=== PATIENT | female | born 1970 | race Two or more races ===

== ENCOUNTER 2021-03-22 01:04 | Inpatient (IN) | payer MEDICAID ==
[~2021-03-22] VITALS: Ht 162.6 cm; Wt 40.4 kg
[2021-03-22] VITALS (11 sets, daily range): BP systolic 110–148; BP diastolic 60–99
--- NOTE | 2021-03-22 01:23 | NUR ---
LAW IBRAHIM AT PT'S BEDSIDE
--- NOTE | 2021-03-22 01:24 | NUR ---
BIBRA 7 C/O PALPITATIONS. STATED IT HAS BEEN GOING ON FOR TWO DAYS BUT WORSTENED TODAY. PT BREATHING FAST BUT EVEN PLACED ON CREDIT COLLECTION ASSOCIATE RATE AT 135. PT ON NC 2LPM AT HOME SATTING 81% ON ASSESSMENT INCREASED TO 4LPM 96%. CHANGED INTO A GOWN AND PLACED ON MONITOR. EMT AT BEDSIDE FOR EKG AND MD AT BEDSIDE FOR EVALUATION.
--- NOTE | 2021-03-22 01:26 | NUR ---
VERTICAL CONTOUR BAND SAW OPERATOR AT PT'S BEDSIDE
[2021-03-22] MEDS ORDERED: IV NS 0.9% 1,000 ML IV ONE (01:30)
[2021-03-22] MEDS ORDERED: ASPIRIN 325 MG TABLET PO ONE (01:30)
[2021-03-22] MEDS ORDERED: ASPIRIN 325 MG TABLET ONE (01:33)
[2021-03-22 01:41] LABS: BASOPHILS % (AUTO) 0.6 % (0.0-2.0); EOSINOPHILS % (AUTO) 3.9 % (0.0-6.0); HEMATOCRIT 36 % (33-45); HEMOGLOBIN 11.9 g/dL (11.5-14.8); LYMPHOCYTES # (AUTO) 1.8 K/uL (0.8-4.8); LYMPHOCYTES % (AUTO) 25.2 % (20.0-44.0); MEAN CORPUSCULAR HGB CONC 33 g/dl (31.0-36.0); MEAN CORPUSCULAR VOLUME 87 fL (82-100); MONOCYTES # (AUTO) 0.7 K/uL (0.1-1.30); MONOCYTES % (AUTO) 8.9 % (2.0-12.0); NEUTROPHILS # (AUTO) 4.5 K/uL (1.8-8.9); NEUTROPHILS % (AUTO) 61.4 % (43.0-81.0); PLATELET COUNT (AUTO) 265 K/uL (150-450); RED BLOOD CELL COUNT(AUTO) 4.19 MIL/uL (4.0-5.2); WHITE BLOOD COUNT (AUTO) 7.3 K/uL (4.3-11.0)
[2021-03-22 01:51] LABS: MAGNESIUM 1.7 mg/dL (1.8-2.4)
[2021-03-22 01:54] LABS: CALCIUM, SERUM 8.3 mg/dL (8.5-10.1); CARBON DIOXIDE 37 mmol/L (21-32); CHLORIDE 99 mmol/L (98-107); CREATININE 0.7 mg/dL (0.6-1.3); GLUCOSE 141 mg/dL (74-106); POTASSIUM 3.7 mmol/L (3.5-5.1); SODIUM SERUM 139 mmol/L (136-145); UREA NITROGEN, BLOOD 9 mg/dL (7-18)
[2021-03-22 02:07] LABS: THYROID STIMULATING HORMONE 2.005 uIU/mL (0.358-3.74)
[2021-03-22] MEDS ORDERED: IV NS 0.9% 250 ML IV ONE (02:08)
[2021-03-22] MEDS ORDERED: IOHEXOL-350 100 ML VIAL IV ONE (02:08)
--- NOTE | 2021-03-22 02:12 | NUR ---
PT BEING TAKEN TO CT VIA OMER
--- NOTE | 2021-03-22 02:32 | NUR ---
PT RETURNED FROM CT
--- NOTE | 2021-03-22 03:47 | NUR ---
COVID SWAB COLLECTED AND SENT TO LAB
[2021-03-22] MEDS ORDERED: CEFEPIME 1 GM in IV D5W 50 ML IV ONE (04:00)
[2021-03-22] MEDS ORDERED: VANCOMYCIN 1 GM VIAL ONE (04:00)
[2021-03-22] MEDS ORDERED: CEFEPIME 1 GM VIAL ONE (04:00)
[2021-03-22] MEDS ORDERED: VANCOMYCIN 1 GM in IV D5W 250 ML IV ONE (04:00)
--- NOTE | 2021-03-22 04:43 | NUR ---
called [facility]. automotive exhaust emissions technician hospitalist paged
--- NOTE | 2021-03-22 04:48 | NUR ---
ER TALKING TO HOSPITALIST
[2021-03-22] MEDS ORDERED: MAGNESIUM HYDROXIDE 30 ML UDC PO PRN (05:30)
[2021-03-22] MEDS ORDERED: MAG HYDROX/AL HYDROX/SIMETH 30 ML UDC PO PRN (05:30)
[2021-03-22] MEDS ORDERED: ONDANSETRON HCL/PF 4 MG/2 ML VIAL IVP PRN (05:30)
[2021-03-22] MEDS ORDERED: Z GUARD REMEDY 4 OZ OINT TP PRN (05:30)
[2021-03-22] MEDS ORDERED: ZOLPIDEM TARTRATE 5 MG TABLET PO PRN (05:30)
--- NOTE | 2021-03-22 05:46 | NUR ---
COVID PCR SWB DONE AND SENT TO LAB
[2021-03-22 06:35] LABS: ABG OXYGEN SATURATION 97.1 % (92.0-98.5); ABG PCO2 83.8 mmHg (35.0-45.0); ABG PH 7.204 (7.350-7.450); ABG PO2 111.7 mmHg (75.0-100.0); AaDO2 18.4 mmHg; COHb 0.3 % (0.5-1.5); MetHb 0.2 % (0.0-1.5); O2Hb 96.6 % (94.0-97.0); SITE, ABG Right Radial; VENT MODE, BG Nasal Cannula
--- NOTE | 2021-03-22 06:57 | NUR ---
PER HOSPITALIST Andrew HARRISON, ORDER FOR BIPAP AND UPGRADE TO ICU.
--- NOTE | 2021-03-22 07:16 | NUR ---
RN INSURANCE AGENTS SUPERVISOR AWARE THAT PT IS UPGRADED TO ICU
[2021-03-22 07:28] LABS: CHOLESTEROL 180 mg/dL (<200); HDL CHOLESTEROL 82 mg/dL (40-60); LDL 83 mg/dL (0-99); TRIGLYCERIDES 60 mg/dL (30-150)
--- NOTE | 2021-03-22 07:30 | NUR ---
PATIENT IN BED, AWAKE, ON BIPAP, WITH SETTINGS OF IPAP/EPAP: 15/5, RATE 22, O2 AT 35%, TOLERATING WELL. ON GRAPHIC ARTIST, SINUS TACHY AT 118. WILL CONTINUE TO MONITOR, KEPT SAFE AND COMFORTABLE.
--- NOTE | 2021-03-22 08:00 | NUR ---
AR BEDSIDE FOR EVAL.
--- NOTE | 2021-03-22 08:55 | NUR ---
TIANA BOWMAN AT BEDSIDE
[2021-03-22] MEDS: ENOXAPARIN SODIUM 40 MG/0.4 ML DISP.SYRIN SQ SCH (09:00)
[2021-03-22] MEDS ORDERED: CITA40TA11 PO (09:14)
[2021-03-22] MEDS ORDERED: PRED1TAB PO (09:14)
[2021-03-22] MEDS ORDERED: POTA-58 PO (09:14)
[2021-03-22] MEDS ORDERED: LEVO25TA9 PO (09:14)
[2021-03-22] MEDS ORDERED: NORT25CA PO (09:14)
[2021-03-22] MEDS ORDERED: FLUT12AE15 INH (09:15)
[2021-03-22] MEDS ORDERED: RIFA300C4 PO (09:15)
[2021-03-22] MEDS ORDERED: CITA20TA16 PO (09:15)
[2021-03-22] MEDS ORDERED: SULF500T46 PO (09:15)
[2021-03-22] MEDS ORDERED: ACET250T9 PO (09:15)
[2021-03-22] MEDS ORDERED: TRAZ-182 PO (09:15)
[2021-03-22] MEDS ORDERED: PANT40TA49 PO (09:15)
[2021-03-22] MEDS ORDERED: METO25TA20 PO (09:15)
[2021-03-22] MEDS ORDERED: FLUTICASONE INH SCH (10:00)
[2021-03-22] MEDS ORDERED: SALMETEROL INH SCH (10:00)
[2021-03-22] MEDS ORDERED: [UNRECOGNIZED DRUG - OTHER] INH SCH (10:00)
[2021-03-22] MEDS ORDERED: ENOXAPARIN SODIUM 40 MG/0.4 ML DISP.SYRIN SQ ONE (10:12)
[2021-03-22] MEDS ORDERED: Magnesium 1GM/D5W 100ML PREMIX 100 ML IV SCH (10:30)
[2021-03-22] MEDS ORDERED: methylPREDNISolone SOD SUCC 40 MG/ML VIAL ONE (10:45)
[2021-03-22] MEDS ORDERED: Magnesium 1GM/D5W 100ML PREMIX 100 ML IV ONE (10:45)
[2021-03-22] MEDS: methylPREDNISolone SOD SUCC 40 MG/ML VIAL IV SCH ×2 (10:52→21:11)
--- NOTE | 2021-03-22 11:03 | NUR ---
SCAR DAUGHTER [phone] CALLED FOR UPDATE
[2021-03-22 11:21] LABS: ABG BASE EXCESS 1.3 mmol/L; ABG PCO2 64.6 mmHg (35.0-45.0); ABG PH 7.277 (7.350-7.450); ABG PO2 90.7 mmHg (75.0-100.0); AaDO2 61.9 mmHg; COHb 0.3 % (0.5-1.5); MetHb 0.2 % (0.0-1.5); O2Hb 95.5 % (94.0-97.0); SITE, ABG Right Radial; VENT MODE, BG NASAL CANNULA
--- NOTE | 2021-03-22 11:36 | NUR ---
PATIENT REQUESTED FOR TYLENOL FOR HEADACHE
[2021-03-22] MEDS ORDERED: ACETAMINOPHEN 325 MG TABLET ONE (11:38)
[2021-03-22] MEDS: ACETAMINOPHEN 325 MG TABLET PO PRN (11:47)
[2021-03-22] MEDS: IPRATROPIUM/ALBUTEROL INHALER IH SCH ×2 (12:00→18:00)
[2021-03-22] MEDS: CEFEPIME 2 GM in IV D5W 100 ML IV SCH ×2 (12:13→20:05)
[2021-03-22] MEDS: VANCOMYCIN 0.75 GM in IV D5W 250 ML IV SCH ×2 (13:05→21:13)
--- NOTE | 2021-03-22 13:19 | NUR ---
ICU BED 255
--- NOTE | 2021-03-22 13:54 | NUR ---
REPORT GIVEN TO ALPESH AUGUSTIN OF ICU
--- NOTE | 2021-03-22 15:21 | NUR ---
RN NOTES RECEIVED PATIENT FROM ER VIA GURDEANA, IMMEDIATELY NEEDED TO VOID - CLEAR YELLOW NORMAL NO ODOR USED BED JORDAN, ABLE TO HELP WITH MINIMAL ASSISTANCE, ABLE TO COMMUNICATE AND MAKES NEEDS KNOW, A & 0 X 3, [place] SPEAKING, UNDERSTANDS SOME MAORI, CAME FROM HOME LIVES WITH FAMILY, C/O CHEST PAIN, SOB NOTED, ON 1 LPM NC PER MD ORDERS TO GAUGE WHERE THE OXYGEN READING IS IN ONE HOUR AND THEN DETERMINE NEXT ORDER. BED WHEELS LOCKED , BED ARMS UP X2 FOR SAFETY, BED LOW TO FLOOR, CALL LIGHT IN REACH. TELE - MEDS ON FOR HR READINGS
[2021-03-22 16:11] LABS: ABG BASE EXCESS 5.4 mmol/L; ABG OXYGEN SATURATION 91.4 % (92.0-98.5); ABG PCO2 63.9 mmHg (35.0-45.0); ABG PH 7.333 (7.350-7.450); ABG PO2 62.1 mmHg (75.0-100.0); COHb 0.3 % (0.5-1.5); MetHb 0.3 % (0.0-1.5); O2Hb 90.9 % (94.0-97.0); SITE, ABG Right Radial; VENT MODE, BG NASAL CANNULA
[2021-03-22] MEDS: FLUTICASONE/VILANTEROL 1 EACH BLST.W.DEV IH SCH (18:56)
[2021-03-22] MEDS: RIFAMPIN 300 MG CAPSULE PO SCH (18:56)
--- NOTE | 2021-03-22 19:06 | NUR ---
RN Closing notes PATIENT TOLERATING NC AT 1 LPM PER MD ORDERS TO EVALUATE OXYGEN LEVELS RANGES FROM 92-96 % GIVEN A 25 FT NC TO MORE EASILY GO TO BATHROOM, GAIT IS WEAK NEEDS 1 PERSON ASSISTANCE, ABLE TO MAKE NEEDS KNOWN AND A & O X4, BED KEPT LOW TO FLOOR, WHEELS LOCKED, 2 SIDE BAR UP FOR SAFETY, FALL RISK IN PLACE, CALL LIGHT IN REACH AND EDUCATED TO ASK FOR HELP WHEN NEEDING TO TRANSFER TO BATHROOM OR OTHER, UNDERSTANDS SOME BASIC OCCITAN, ALL NEEDS MET IN A TIMELY MANNER AND REPOSITIONED FOR COMFORT AND SAFETY OF SKIN.
--- NOTE | 2021-03-22 19:45 | NUR ---
LONG TERM CARE ADMINISTRATOR OPENING NOTE RECEIVED PATIENT IN BED. A/OX4. NO S/S OF APPARENT DISTRESS ON 1LPM OF O2 VIA NC. DENIES PAIN AT THIS TIME BUT REPORTS BEING ANXIOUS. IV LINE PULLED OUT-- WILL INSERT NEW ONE. PATIENT NOTED TO BE SINUS TACH AT 130's. WILL CONTINUE WITH PLAN OF CARE FOR PATIENT.
--- NOTE | 2021-03-22 20:00 | NUR ---
CLOCK REPAIR TECHNICIAN NOTE INSERTED NEW IV ACCESS ON RI. FOREARM 20 G.
--- NOTE | 2021-03-22 20:57 | NUR ---
SEAM CHECKER NOTE PATIENT VERY ANXIOUS RIGHT NOW AND REQUESTING LORAZEPAM. PER PATIENT SHE TAKES 0.5 MG OF LORAZEPAM AT HOME. MESSAGED DOCTOR SUZY TO GET AN ORDER. WILL CARRY OUT ORDER ONCE VERIFIED. WILL CONTINUE TO MONITOR PATIENT.
[2021-03-22] MEDS ORDERED: LORAZEPAM 0.5 MG TABLET PO PRN (21:30)
[2021-03-22] MEDS: TRAZODONE 50 MG TABLET PO SCH (22:02)
--- NOTE | 2021-03-22 23:45 | NUR ---
agricultural commodities grader note RESPIRATORYMARY AT BEDSIDE AT THIS TIME TO PUT PATIENT IN BiPAP.
[2021-03-23] VITALS (32 sets, daily range): BP systolic 101–132; BP diastolic 56–88
[2021-03-23] MEDS: IPRATROPIUM/ALBUTEROL INHALER IH SCH ×2 (00:07→05:32)
--- NOTE | 2021-03-23 01:40 | NUR ---
PAPER BALING MACHINE OPERATOR NOTE CHARGE NURSE, RISHI TOOK PATIENT OFF OF BiPAP AT 0115 PER PATIENT REQUEST. STABLE FOR NOW. WILL CONTINUE TO MONITOR.
[2021-03-23] MEDS: CEFEPIME 2 GM in IV D5W 100 ML IV SCH ×3 (03:27→21:49)
[2021-03-23] MEDS: methylPREDNISolone SOD SUCC 40 MG/ML VIAL IV SCH ×3 (04:18→22:14)
[2021-03-23] MEDS: VANCOMYCIN 0.75 GM in IV D5W 250 ML IV SCH ×3 (04:18→21:49)
[2021-03-23 06:43] LABS: BASOPHILS % (AUTO) 0.2 % (0.0-2.0); HEMATOCRIT 33 % (33-45); HEMOGLOBIN 11.1 g/dL (11.5-14.8); LYMPHOCYTES # (AUTO) 0.7 K/uL (0.8-4.8); LYMPHOCYTES % (AUTO) 8.3 % (20.0-44.0); MEAN CORPUSCULAR HGB CONC 33 g/dl (31.0-36.0); MEAN CORPUSCULAR VOLUME 86 fL (82-100); MONOCYTES # (AUTO) 0.2 K/uL (0.1-1.30); MONOCYTES % (AUTO) 2.5 % (2.0-12.0); NEUTROPHILS # (AUTO) 7.7 K/uL (1.8-8.9); PLATELET COUNT (AUTO) 254 K/uL (150-450); RED BLOOD CELL COUNT(AUTO) 3.89 MIL/uL (4.0-5.2); WHITE BLOOD COUNT (AUTO) 8.7 K/uL (4.3-11.0)
--- NOTE | 2021-03-23 06:54 | NUR ---
agriculture technician closing note Patient sleeping comfortably in bed. Easy to arouse. A/OX4. no s/s of apparent distress on 1lpm of O2 via nc, saturating 95%. no c/o pain. all needs attended. all scheduled meds administered. safety kept in place the whole shift. Will endorse to morning shift RN for continuity of care.
[2021-03-23 06:57] LABS: CALCIUM, SERUM 8.6 mg/dL (8.5-10.1); CREATININE 0.6 mg/dL (0.6-1.3); PHOSPHORUS 3.4 mg/dL (2.5-4.9); POTASSIUM 4.2 mmol/L (3.5-5.1)
[2021-03-23] MEDS: LEVOTHYROXINE SODIUM 25 MCG TABLET PO SCH (08:23)
[2021-03-23] MEDS: CITALOPRAM HYDROBROMIDE 20 MG TABLET PO SCH (08:23)
[2021-03-23] MEDS ORDERED: NORTRIPTYLINE HCL 25 MG CAPSULE PO SCH (09:00)
[2021-03-23] MEDS: ENOXAPARIN SODIUM 40 MG/0.4 ML DISP.SYRIN SQ SCH (09:13)
[2021-03-23] MEDS: PANTOPRAZOLE 40 MG TABLET.DR PO SCH (09:14)
[2021-03-23] MEDS: SULFASALAZINE 500 MG TABLET PO SCH (09:14)
[2021-03-23] MEDS: NORTRIPTYLINE HCL 25 MG CAPSULE PO SCH (09:18)
[2021-03-23] MEDS ORDERED: IV D5/ 0.9% NACL 1,000 ML IV PRN (13:00)
[2021-03-23] MEDS: RIFAMPIN 300 MG CAPSULE PO SCH (17:56)
--- NOTE | 2021-03-23 19:12 | NUR ---
RN CLOSING NOTES PATIENT A/0X4, REQUESTING TO GO TO A [facility] THAT IS UNDER THIS [place], AWARE AND APPROVED TO CALL SS TO GET TRANSFERRED TO HOSPITAL THAT WILL ACCEPT HER INSURANCE ETC WITH A HOSPITAL INTERACTIVE WITH [facility], SS CONTACTED,. FAMILY CONTACTED, 2 DIFFERENT HOSPITALS CONTACTED TO FAX OVER INFORMATION AND GET TRANSFER APPROVAL, AWAITING FAX FROM [facility] [place] AT [place] AT THIS TIME TO RECEIVE APPROVAL AND INFORMATION STATUS, IV INTACT PATENT FLUSHING, BED LOW TO FLOOR, WHEELS LOCKED, ALL MD ORDERS CARRIED OUT AND NO ADVERSE SIDE EFFECTS NOTED AT THIS TIME. CALL LIGHT IN REACH, PRIVACY PROVIDED DURING VOIDS AND BMS ON BED SIDE COMMODE.
--- NOTE | 2021-03-23 21:11 | NUR ---
inspector agricultural commodities. initial assessment. received the pt rest in bed, pt awake, alert, fol;low commands. ekg monitor showing s tach. iv rt hand 20g/ tko running. oxygen 1l via nasal cannula, sat 98%. no acute distress noted. will continue to monitor vitals.
[2021-03-23] MEDS: TRAZODONE 50 MG TABLET PO SCH (22:12)
[2021-03-24] VITALS (42 sets, daily range): BP systolic 97–132; BP diastolic 56–84
[2021-03-24] MEDS: ACETAMINOPHEN 325 MG TABLET PO PRN (01:12)
[2021-03-24] MEDS: methylPREDNISolone SOD SUCC 40 MG/ML VIAL IV SCH ×3 (05:40→23:08)
[2021-03-24] MEDS: CEFEPIME 2 GM in IV D5W 100 ML IV SCH ×3 (05:40→23:08)
[2021-03-24 06:09] LABS: CALCIUM, SERUM 8.6 mg/dL (8.5-10.1); CREATININE 0.5 mg/dL (0.6-1.3); POTASSIUM 3.6 mmol/L (3.5-5.1)
[2021-03-24] MEDS: VANCOMYCIN 0.75 GM in IV D5W 250 ML IV SCH ×3 (06:35→23:09)
--- NOTE | 2021-03-24 07:30 | NUR ---
rn note received pt rest in bed, awake, alert, follow commands. software development project manager showing s tach. iv rt hand 20g/ running antibiotic. oxygen 1l via nasal cannula, sat 98%. no acute distress noted. will continue to monitor and reese.
[2021-03-24 09:00] LABS: ABG BASE EXCESS 11.3 mmol/L; ABG OXYGEN SATURATION 93.2 % (92.0-98.5); ABG PCO2 65.7 mmHg (35.0-45.0); ABG PH 7.387 (7.350-7.450); ABG PO2 67.6 mmHg (75.0-100.0); AaDO2 25.3 mmHg; COHb 0.3 % (0.5-1.5); MetHb 0.1 % (0.0-1.5); O2Hb 92.8 % (94.0-97.0); SITE, ABG Right Radial; VENT MODE, BG 1L NC
[2021-03-24] MEDS: LEVOTHYROXINE SODIUM 25 MCG TABLET PO SCH (09:11)
[2021-03-24] MEDS: CITALOPRAM HYDROBROMIDE 20 MG TABLET PO SCH (09:11)
[2021-03-24] MEDS: NORTRIPTYLINE HCL 25 MG CAPSULE PO SCH (09:11)
[2021-03-24] MEDS: SULFASALAZINE 500 MG TABLET PO SCH (09:11)
[2021-03-24] MEDS: PANTOPRAZOLE 40 MG TABLET.DR PO SCH (09:11)
[2021-03-24] MEDS: FLUTICASONE/VILANTEROL 1 EACH BLST.W.DEV IH SCH (09:12)
[2021-03-24] MEDS: ENOXAPARIN SODIUM 40 MG/0.4 ML DISP.SYRIN SQ SCH (09:13)
[2021-03-24] MEDS: RIFAMPIN 300 MG CAPSULE PO SCH (17:18)
--- NOTE | 2021-03-24 19:17 | NUR ---
RN NOTE pt remain rest in bed, awake, alert, follow commands A/O x4. field sales agent showing s tach. iv rt hand 20g/ running D5 %0.9 NS. oxygen 1l via nasal cannula, sat 98%. no acute distress noted. ALL DUE MED GIVEN, WILL ENDURSE TO NOC SIFT.
--- NOTE | 2021-03-24 19:30 | NUR ---
STUDY ASSISTANT OPENING NOTES RECEIVED PATIENT LAYING AWAKE IN BED. A/O X4. PATIENT WITH REGULAR AND UNLABORED BREATHING ON ROOM AIR TOLERATED WELL. NO DISTRESS NOTED AT THIS TIME. NO COMPLAINS OF PAIN OR DISCOMFORT AT THIS TIME. IV ACCESS RFA G#20 IV D5 NS RUNNING 75 ML/HR IV ACCESS PATENT AND INTACT. SAFETY PRECAUTIONS ENFORCED WITH BED LOCKED AND AT LOWEST POSITION. SIDE RAILS UP X2. CALL LIGHT WITHIN REACH AT ALL TIMES. WILL CONTINUE TO MONITOR PATIENT.
[2021-03-24] MEDS: TRAZODONE 50 MG TABLET PO SCH (23:08)
[2021-03-25] VITALS: BP 115/72
[2021-03-25 04:00] VITALS: BP 115/72
[2021-03-25] MEDS: CEFEPIME 2 GM in IV D5W 100 ML IV SCH ×3 (04:50→19:17)
--- NOTE | 2021-03-25 07:35 | NUR ---
MARINE PHOTOGRAPHER CLOSING NOTES PATIENT STILL LAYING AWAKE IN BED. A/O X4. PATIENT WITH REGULAR AND UNLABORED BREATHING ON ROOM AIR TOLERATED WELL. NO DISTRESS NOTED AT THIS TIME. NO COMPLAINS OF PAIN OR DISCOMFORT AT THIS TIME. IV ACCESS RFA G#20 IV D5 NS RUNNING 75 ML/HR IV ACCESS PATENT AND INTACT. SAFETY PRECAUTIONS ENFORCED WITH BED LOCKED AND AT LOWEST POSITION. SIDE RAILS UP X2. CALL LIGHT WITHIN REACH AT ALL TIMES. WILL ENDORSE SUNIL TO DAY SHIFT NURSE.
--- NOTE | 2021-03-25 07:54 | NUR ---
RN OPENING NOTES RECEIVED PT IN BED ASLEEP, EASY TO AROUSE. ALERT AND ORIENTED X4. NO S/SX OF DISTRESS NOTED. NO SOB. BREATHING EVEN AND UNLABORED, TOLERATING WELL AT 1L VIA NASAL CANNULA TO KEEP O2 SAT ABOVE 95%. IV ACCESS ON RFA #20 INTACT AND PATENT WITH D5 NS RUNNING @75MLS/HR. SAFETY MEASURE IN PLACE WITH BED LOCKED AND IN LOWEST POSITION, SR UP X2, CALL LIGHT PLACED WITHIN EASY REACH. WILL CONTINUE TO MONITOR PT FOR CHANGES IN CONDITION.
[2021-03-25 08:00] VITALS: BP 115/72
[2021-03-25 08:30] LABS: CALCIUM, SERUM 8.8 mg/dL (8.5-10.1); CREATININE 0.6 mg/dL (0.6-1.3); POTASSIUM 3.4 mmol/L (3.5-5.1)
[2021-03-25] MEDS: ACETAMINOPHEN 325 MG TABLET PO PRN (08:41)
[2021-03-25] MEDS: CITALOPRAM HYDROBROMIDE 20 MG TABLET PO SCH (08:42)
[2021-03-25] MEDS: LEVOTHYROXINE SODIUM 25 MCG TABLET PO SCH (08:42)
[2021-03-25] MEDS: PANTOPRAZOLE 40 MG TABLET.DR PO SCH (08:42)
[2021-03-25] MEDS: ENOXAPARIN SODIUM 40 MG/0.4 ML DISP.SYRIN SQ SCH (08:43)
[2021-03-25] MEDS: NORTRIPTYLINE HCL 25 MG CAPSULE PO SCH (08:43)
[2021-03-25] MEDS: SULFASALAZINE 500 MG TABLET PO SCH (08:43)
[2021-03-25 08:47] LABS: BASOPHILS % (AUTO) 0.6 % (0.0-2.0); EOSINOPHILS % (AUTO) 0.5 % (0.0-6.0); HEMATOCRIT 34 % (33-45); HEMOGLOBIN 11.4 g/dL (11.5-14.8); LYMPHOCYTES # (AUTO) 1.4 K/uL (0.8-4.8); LYMPHOCYTES % (AUTO) 26.2 % (20.0-44.0); MEAN CORPUSCULAR HGB CONC 33 g/dl (31.0-36.0); MEAN CORPUSCULAR VOLUME 86 fL (82-100); MONOCYTES # (AUTO) 0.3 K/uL (0.1-1.30); MONOCYTES % (AUTO) 6.4 % (2.0-12.0); NEUTROPHILS # (AUTO) 3.6 K/uL (1.8-8.9); NEUTROPHILS % (AUTO) 66.3 % (43.0-81.0); PLATELET COUNT (AUTO) 262 K/uL (150-450); RED BLOOD CELL COUNT(AUTO) 3.98 MIL/uL (4.0-5.2); WHITE BLOOD COUNT (AUTO) 5.4 K/uL (4.3-11.0)
[2021-03-25] MEDS: FLUTICASONE/VILANTEROL 1 EACH BLST.W.DEV IH SCH (08:47)
[2021-03-25 12:00] VITALS: BP 115/72
[2021-03-25] MEDS: methylPREDNISolone SOD SUCC 40 MG/ML VIAL IV SCH (12:09)
[2021-03-25] MEDS: VANCOMYCIN 0.75 GM in IV D5W 250 ML IV SCH ×2 (12:09→21:50)
[2021-03-25] MEDS ORDERED: POTASSIUM CHLORIDE 20 MEQ TAB.PRT.SR PO SCH (13:00)
[2021-03-25] MEDS ORDERED: POTASSIUM CHLORIDE 20 MEQ TAB.PRT.SR PO ONE ×2 (13:00)
[2021-03-25 16:00] VITALS: BP 115/72
[2021-03-25] MEDS: RIFAMPIN 300 MG CAPSULE PO SCH (17:08)
--- NOTE | 2021-03-25 18:54 | NUR ---
RN CLOSING NOTES PATIENT AWAKE IN BED. A/O X4. PATIENT WITH REGULAR AND UNLABORED BREATHING ON ROOM AIR TOLERATED WELL. NO S/SX OF DISTRESS. SAFETY PRECAUTIONS ENFORCED WITH BED LOCKED AND AT LOWEST POSITION. IV ACCESS PATENT AND INTACT SL. SIDE RAILS UP X2. CALL LIGHT WITHIN REACH AT ALL TIMES. WILL ENDORSE CONTINUITY OF CARE TO ONCOMING SHIFT.
--- NOTE | 2021-03-25 19:15 | NUR ---
RN OPENING NOTES RECEIVED PATIENT ON BED A/O X 4, RESPIRATORY EVEN AND UNLABORED, ON NC AT 1LPM TOLERATING WELL, NO SOB NOTED, NO S/S OF DISTRESS NOTED. PATIENT NOTED WITH RAC PERIPHERAL LINE G#20 INTACT PATENT AND FLUSHING WELL. BED IN LOWEST POSITION LOCKED AND BED ALARM ARMED. WILL CONTINUE TO MONITOR.
[2021-03-25 20:00] VITALS: BP 114/81
--- NOTE | 2021-03-25 20:20 | NUR ---
RN NOTES RESULTED VANCO TROUGH -12. VANCOMYCIN 0.75G WILL ADMINISTER ORDERED.
--- NOTE | 2021-03-25 21:30 | NUR ---
RN NOTES PATIENT C/O OF PAIN ON HER RFA PERIPHERAL LINE, UPON ASSESSMENT NOTED WITH SWELLING. REMOVED RFA PERIPHERAL LINE, PATIENT TOLERATED WELL, NO BLEEDING NOTED AT THE SITE. REINSERTED PERIPHERAL LINE IN LFA #20.
[2021-03-25] MEDS: TRAZODONE 50 MG TABLET PO SCH (22:17)
[2021-03-26] VITALS: BP 109/68
[2021-03-26] MEDS: CEFEPIME 2 GM in IV D5W 100 ML IV SCH ×2 (03:39→11:03)
[2021-03-26] MEDS: ACETAMINOPHEN 325 MG TABLET PO PRN ×2 (03:39→09:36)
--- NOTE | 2021-03-26 03:47 | NUR ---
RN NOTES PATIENT C/O HEADACHE, ACETAMINOPHEN 650MG GIVEN PER MD'S ORDER.
[2021-03-26 04:00] VITALS: BP 105/47
[2021-03-26] MEDS: VANCOMYCIN 0.75 GM in IV D5W 250 ML IV SCH ×2 (04:48→12:00)
--- NOTE | 2021-03-26 06:58 | NUR ---
RN CLOSING NOTES REMAIN STABLE THROUGH OUT THE SHIFT, RESPIRATORY EVEN AND UNLABORED, ON NC AT 1LPM TOLERATING WELL, NO SOB NOTED, NO S/S OF DISTRESS NOTED. PATIENT NOTED WITH RAC PERIPHERAL LINE G#20 INTACT PATENT AND FLUSHING WELL. ALL DUE MEDS GIVEN ORDERED. BED IN LOWEST POSITION LOCKED AND BED ALARM ARMED. WILL CONTINUE TO MONITOR.
--- NOTE | 2021-03-26 07:22 | NUR ---
RN OPENING NOTES; RECEIVED PT IN BED, A/OX4, AMBULATORY. PT HAS NO C/O SOB, OR PAIN AT THIS TIME. NO DISTRESS NOTED. RFA #20 NOTED, FLUSHED, WITH NO SIGNS OF INFILTRATION. ALL SAFETY MEASURES RENDERED, BED LOCKED, IN LOWEST POS. SIDERAILS X2, WITH CALL LIGHT WITHIN REACH. WILL CONTINUE TO MONITOR.
[2021-03-26 08:00] VITALS: BP 115/60
[2021-03-26] MEDS: NORTRIPTYLINE HCL 25 MG CAPSULE PO SCH (08:06)
[2021-03-26] MEDS: SULFASALAZINE 500 MG TABLET PO SCH (08:06)
[2021-03-26] MEDS: LEVOTHYROXINE SODIUM 25 MCG TABLET PO SCH (08:06)
[2021-03-26] MEDS: ENOXAPARIN SODIUM 40 MG/0.4 ML DISP.SYRIN SQ SCH (08:06)
[2021-03-26] MEDS: CITALOPRAM HYDROBROMIDE 20 MG TABLET PO SCH (08:06)
[2021-03-26] MEDS: PANTOPRAZOLE 40 MG TABLET.DR PO SCH (08:06)
[2021-03-26] MEDS: FLUTICASONE/VILANTEROL 1 EACH BLST.W.DEV IH SCH (08:07)
[2021-03-26] MEDS: methylPREDNISolone SOD SUCC 40 MG/ML VIAL IV SCH (08:10)
[2021-03-26 08:20] LABS: BASOPHILS % (AUTO) 0.6 % (0.0-2.0); EOSINOPHILS % (AUTO) 6.3 % (0.0-6.0); HEMATOCRIT 32 % (33-45); LYMPHOCYTES # (AUTO) 3.2 K/uL (0.8-4.8); LYMPHOCYTES % (AUTO) 43.3 % (20.0-44.0); MEAN CORPUSCULAR HGB CONC 34 g/dl (31.0-36.0); MEAN CORPUSCULAR VOLUME 86 fL (82-100); MONOCYTES # (AUTO) 0.7 K/uL (0.1-1.30); MONOCYTES % (AUTO) 9.5 % (2.0-12.0); NEUTROPHILS % (AUTO) 40.3 % (43.0-81.0); PLATELET COUNT (AUTO) 248 K/uL (150-450); RED BLOOD CELL COUNT(AUTO) 3.73 MIL/uL (4.0-5.2); WHITE BLOOD COUNT (AUTO) 7.3 K/uL (4.3-11.0)
[2021-03-26 08:45] LABS: CALCIUM, SERUM 9.2 mg/dL (8.5-10.1); CREATININE 0.6 mg/dL (0.6-1.3)
[2021-03-26] MEDS: ENSURE ENLIVE 237 ML LIQUID (VANILLA) PO SCH ×2 (09:20→16:15)
[2021-03-26] MEDS ORDERED: POTASSIUM CHLORIDE 20 MEQ TAB.PRT.SR PO SCH (11:00)
[2021-03-26 12:00] VITALS: BP 118/67
[2021-03-26 16:00] VITALS: BP 121/69
[2021-03-26] MEDS: RIFAMPIN 300 MG CAPSULE PO SCH (17:00)
--- NOTE | 2021-03-26 18:38 | NUR ---
RN CLOSING NOTES; PT A/OX4, NO SOB NOTED, PT ON 02 AT 1LPM. RN ENCOURAGED PT TO NO USE OXYGEN. PT STATES SHE FEELS BETTER USING IT. NO C/O PAIN AT THIS TIME. NO DISTRESS NOTED. ALL MEDICATIONS GIVEN, AND TOLERATED WELL. PT KEPT CLEAN, DRY AND COMFORTABLE. ALL SAFETY MEASURES RENDERED, BED IN LOWEST POS. LOCKED, SIDE RAILSX3 WITH CALL LIGHT WITHIN REACH. NO SIGNIFICANT CHANGES TO PT HEALTH STATUS ON SHIFT. WILL ENDORSE TO SENIOR COLDFUSION DEVELOPER RN. PT IN STABLE CONDITION.
[2021-03-26 20:00] VITALS: BP 114/75
[2021-03-26] MEDS: TRAZODONE 50 MG TABLET PO SCH (22:01)
[2021-03-27] VITALS: BP 124/79
[2021-03-27] MEDS: ACETAMINOPHEN 325 MG TABLET PO PRN (00:18)
--- NOTE | 2021-03-27 00:20 | NUR ---
SENIOR ELECTRICAL CONTROLS ENGINEER NOTE PT IN BED AWAKE. C/O HEADACHE 05/30, TYLENOL 650 MG PO GIVEN. CONTINUE TO MONITOR HER.
--- NOTE | 2021-03-27 01:20 | NUR ---
GEOTHERMAL POWERPLANT SUPERVISOR NOTE PT IN BED ASLEEP, EASILY AROUSABLE. NO DISTRESS OR DISCOMFORT NOTED. HEADACHE SUBSIDED.
[2021-03-27 04:00] VITALS: BP 121/80
--- NOTE | 2021-03-27 07:03 | NUR ---
RN OPENING NOTES; RECEIVED PT IN BED, A/OX4, AMBULATORY. PT CAN INDEPENDENTLY REPOSITION SELF IN BED. PT HAS NO C/O SOB, OR PAIN AT THIS TIME. NO DISTRESS NOTED. RFA #20 NOTED, FLUSHED, WITH NO SIGNS OF INFILTRATION. ALL SAFETY MEASURES RENDERED, BED LOCKED, IN LOWEST POS. SIDERAILS X2, WITH CALL LIGHT WITHIN REACH. WILL CONTINUE TO MONITOR.
[2021-03-27 07:41] LABS: BASOPHILS % (AUTO) 0.7 % (0.0-2.0); EOSINOPHILS % (AUTO) 6.1 % (0.0-6.0); HEMATOCRIT 36 % (33-45); HEMOGLOBIN 11.9 g/dL (11.5-14.8); LYMPHOCYTES # (AUTO) 2.9 K/uL (0.8-4.8); LYMPHOCYTES % (AUTO) 44.4 % (20.0-44.0); MEAN CORPUSCULAR HGB CONC 33 g/dl (31.0-36.0); MEAN CORPUSCULAR VOLUME 86 fL (82-100); MONOCYTES # (AUTO) 0.6 K/uL (0.1-1.30); MONOCYTES % (AUTO) 8.6 % (2.0-12.0); NEUTROPHILS # (AUTO) 2.7 K/uL (1.8-8.9); NEUTROPHILS % (AUTO) 40.2 % (43.0-81.0); PLATELET COUNT (AUTO) 280 K/uL (150-450); RED BLOOD CELL COUNT(AUTO) 4.12 MIL/uL (4.0-5.2); WHITE BLOOD COUNT (AUTO) 6.6 K/uL (4.3-11.0)
[2021-03-27] MEDS: ENSURE ENLIVE 237 ML LIQUID (VANILLA) PO SCH (07:44)
[2021-03-27 08:00] VITALS: BP 113/70
[2021-03-27 08:04] LABS: CALCIUM, SERUM 9.4 mg/dL (8.5-10.1); CREATININE 0.6 mg/dL (0.6-1.3); POTASSIUM 3.8 mmol/L (3.5-5.1)
[2021-03-27] MEDS: SULFASALAZINE 500 MG TABLET PO SCH (08:20)
[2021-03-27] MEDS: LEVOTHYROXINE SODIUM 25 MCG TABLET PO SCH (08:20)
[2021-03-27] MEDS: methylPREDNISolone SOD SUCC 40 MG/ML VIAL IV SCH (08:20)
[2021-03-27] MEDS: PANTOPRAZOLE 40 MG TABLET.DR PO SCH (08:20)
[2021-03-27] MEDS: CITALOPRAM HYDROBROMIDE 20 MG TABLET PO SCH (08:20)
[2021-03-27] MEDS: NORTRIPTYLINE HCL 25 MG CAPSULE PO SCH (08:20)
[2021-03-27] MEDS: ENOXAPARIN SODIUM 40 MG/0.4 ML DISP.SYRIN SQ SCH (08:21)
[2021-03-27] MEDS: FLUTICASONE/VILANTEROL 1 EACH BLST.W.DEV IH SCH (08:25)
[2021-03-27] MEDS ORDERED: FLUT1BLS IH (09:50)
[2021-03-27] MEDS ORDERED: PRED20TA PO (09:50)
[2021-03-27] MEDS ORDERED: ENSURE ENLIVE CHOC 237 ML CAN PO SCH (10:00)
--- NOTE | 2021-03-27 11:40 | NUR ---
per [facility] covid negative.
[2021-03-27 12:54] VITALS: BP 112/72
--- NOTE | 2021-03-27 14:37 | NUR ---
RN DC NOTES; PT DC TO HOME. D/C INSTRUCTIONS GIVEN TO PT AND DAUGHTER. ALL PAPERWORK SIGNED. ALL PT BELONGINGS SENT WITH PT. PT A/OX4, NO DISTRESS NOTED. PT LEFT VIA PRIVATE VEHICLE WITH DAUGHTER. PT LEFT IN STABLE CONDITION.
== END 2021-03-27 14:32 | disposition home or self-care (01) | DRG 137 ==
LOC: ER 01:11 → TRANSITION 05:37 → ICU 14:12 → TELE1 03-24 10:58
PROVIDERS: ADMIT Internal Medicine; ATTEND Internal Medicine
PROC: 5A09357 Assistance with Respiratory Ventilation, Less than 24 Consecutive Hours, Continuous Positive Airway Pressure (ICD-10-PCS; principal; 2021-03-22)
DX: J15.6 Pneumonia due to other Gram-negative bacteria (principal); J96.21 Acute and chronic respiratory failure with hypoxia; G93.41 Metabolic encephalopathy; E87.2 Acidosis; Z99.81 Dependence on supplemental oxygen; Z20.822 Contact with and (suspected) exposure to COVID-19; E78.5 Hyperlipidemia, unspecified; J96.22 Acute and chronic respiratory failure with hypercapnia; E03.9 Hypothyroidism, unspecified; I10 Essential (primary) hypertension; J45.909 Unspecified asthma, uncomplicated; Z87.09 Personal history of other diseases of the respiratory system; Z86.19 Personal history of other infectious and parasitic diseases
CPT/HCPCS: 36415; 36600; 71045-TC; 80048-TC; 80061-TC; 80202-TC; 82803-TC; 83735-TC; 83880; 84100-TC; 84439-TC; 84443-TC; 84484-TC; 85025-TC; 85378-TC; 85652-TC; 87081-TC; 93307-TC; C9803; G0378; J0692; J1650; J2405; J2920; J3370; J3475; J7030; J7042; J7050; J7060; Q9967; U0003